=== PATIENT | female | born 1945 | race Caucasian/White ===

== ENCOUNTER → 2024-06-25 13:10 | Outpatient (REF) | payer MEDICARE, OTHER, SELFPAY ==
[2024-06-25 14:54] LABS: Urine Albumin 1+ (Neg - Trace); Urine Bilirubin Negative (Negative); Urine Character Clear (Clear); Urine Color Yellow; Urine Glucose Negative (Negative); Urine Ketone Negative (Negative); Urine Leukocyte 3+ (Negative); Urine Nitrite Negative (Negative); Urine Occult Blood 2+ (Negative); Urine Urobilinogen Negative (Neg - 1+)
[2024-06-25 15:05] LABS: Urine Bacteria Few (Negative); Urine Red Blood Cell 0-2 /HPF (0-2)
== END ==
LOC: CLAB 13:10
PROVIDERS: ATTENDING PHYSICIAN Urology
DX: N36.8 Other specified disorders of urethra (principal); R31.29 Other microscopic hematuria
CPT/HCPCS: 81003; 81015; 87086

== ENCOUNTER → 2024-09-25 12:50 | Outpatient (REF) | payer MEDICARE, OTHER, SELFPAY ==
[2024-09-26 17:30] LABS: Urine Albumin Negative (Neg - Trace); Urine Bilirubin Negative (Negative); Urine Character Slightly Cloudy (Clear); Urine Color Yellow; Urine Glucose Negative (Negative); Urine Ketone Negative (Negative); Urine Leukocyte 2+ (Negative); Urine Nitrite Positive (Negative); Urine Occult Blood 2+ (Negative); Urine Urobilinogen Negative (Neg - 1+)
[2024-09-26 17:37] LABS: Urine Bacteria Many (Negative); Urine White Cell 50-60 /HPF (0-5)
== END ==
LOC: CLAB 12:50
PROVIDERS: ATTENDING PHYSICIAN Urology
DX: R39.9 Unspecified symptoms and signs involving the genitourinary system (principal)
CPT/HCPCS: 81003; 81015; 87071; 87086